=== PATIENT | male | born 1975 | race Hispanic/Latino ===

== ENCOUNTER → 2019-05-23 | Outpatient (CLI) | payer BC, SELFPAY ==
[2019-05-22 11:44] VITALS: BMI 26.9
[2019-05-23 22:29] LABS: Absolute Lymphocyte Count 1.22 X10^3/uL (0.83-4.51); Absolute Neutrophil Count 8.4 X10^3/uL (2.0-7.7); Basophil# 0.01 X10^3/uL; Basophil% 0.1 % (0-1); Eosinophil# 0.01 X10^3/uL; Eosinophils% 0.1 % (0-5); Hemoglobin 13.7 g/dL (13.0-16.5); Lymphocyte # 1.22 X10^3/ul (4.0); Lymphocyte % 11.8 % (19-41); Mean Corp Hgb Conc 31.9 g/dL (32-36); Mean Corpuscular Hgb 29.5 pg (27.0-32.0); Mean Corpuscular Volume 92.7 fL (80-94); Mean Platelet Vol. 10.9 fl (6.2-12.0); Monocyte# 0.61 X10^3/uL; Monocyte% 5.9 % (0-10); NRBC Flagged by Analyzer 0 % (0-5); Neutrophil # 8.43 X10^3/uL (2.7-7.7); Neutrophil % 81.8 % (47-70); Platelet Count 362 K/mm3 (150-450); RBC Distribution Width CV 12.9 % (11.6-14.6); RBC Distribution Width SD 43.7 fl (35.1-43.9); Red Blood Count 4.64 M/mm3 (4.6-6.2); White Blood Count 10.3 K/mm3 (4.4-11.0)
[2019-05-23 22:36] LABS: ALB/GLOB Ratio 0.8 RATIO (0.9-2.4); AST(SGOT) 23 U/L (15-37); Alanine Aminotransfer ALT/SGPT 41 U/L (16-61); Albumin, Serum 3.7 g/dL (3.2-5.0); Alkaline Phosphatase 98 U/L (45-117); Anion Gap 6 (5-15); BUN 11 mg/dL (7-18); BUN/Creat Ratio 11.1 RATIO (10-20); Calcium,Total 9.8 mg/dL (8.5-10.1); Chloride 106 mmol/L (98-107); Cholesterol 264 mg/dL (200); Creatinine, Serum 0.99 mg/dL (0.70-1.30); EST Glomerular Filtration Rate 86 mL/min (>60); Est Glom Filt Rate - Afr Amer 104 mL/min (>60); Globulin 4.6 g/dL (2.2-4.2); Glucose 87 mg/dL (74-106); High Density Lipoprotein 77 mg/dL; Potassium 4.6 mmol/L (3.5-5.1); Protein, Total 8.3 g/dL (6.4-8.2); Sodium Level 139 mmol/L (136-145); Triglycerides 106 mg/dL; Very Low Density Lipoprotein 21 mg/dL (5-40)
== END | disposition home or self-care (01) ==
PROVIDERS: Referring Provider Nurse Practitioner; Visit Provider Nurse Practitioner
DX: E78.5 Hyperlipidemia, unspecified (principal)
CPT/HCPCS: 80053; 80061; 85025

== ENCOUNTER → 2019-11-06 14:51 | Outpatient (CLI) | payer BC, SELFPAY ==
[2019-11-01 12:45] VITALS: BMI 25.7
--- NOTE | 2019-11-06 15:16 | PET_ITS ---
EXAMINATION: FDG PET-CT INDICATIONS: A 44-year-old male with a reported history of pulmonary nodularity presenting for restaging examination. COMPARISON EXAMINATION: Previous CT of the chest report dated 11/02/19. INDEX LESION SIZE SUV INTERPRETATION Right lower posteromedial lung-right lower lobe 26.9 mm, frame 198 6.8 Fulfills quantitative criteria for viable neoplasm, histopathologic analysis recommended. Mediastinal structures right thoracic perihilum 35.1 mm largest, frame 206 5.1 max Fulfills quantitative criteria for viable neoplasm. Additional left lung nodules left lower lobe-left upper lobe 14.8 mm largest, frame 182 1.9 max Quantitative criteria for viable neoplasm not fulfilled. Left anterior neck soft tissue with fatty hilus 1.8 max Low likelihood of viable neoplasm. NON-INDEX LESION SIZE SUV INTERPRETATION Chest wall-rib 2.1 max Quantitative criteria for viable neoplasm are not fulfilled, most consistent with trauma-fracture. TECHNIQUE: Following the intravenous administration of 14.8 mCi of F-18 deoxyglucose via the left antecubital fossa, multiplanar image acquisitions of the head, neck, chest, abdomen and pelvis to level of mid-thigh, lower extremities obtained at one hour post radiopharmaceutical administration contemporaneously interpreted with the current CT of the head, neck, chest, abdomen and pelvis to level of mid-thigh, lower extremities dated 11/06/19 via coregistration and previous renal cell ultrasound report dated 11/02/19 reveal: SERUM GLUCOSE LEVEL: 83 mg/dl. HEIGHT: 68 inches. WEIGHT: 165 lbs. FINDINGS: 1. Focal increased radiopharmaceutical concentration is demonstrated in the right lower posteromedial lung-right lower lung-infrahilar region. The calculated maximum standard uptake value is 6.8. The maximum axial diameter of the corresponding parenchymal density on review of CT of the chest dated 11/06/19 is 26.9 mm (AP). 2. An additional nodular focus of increased FDG uptake is noted in the left lower posterolateral lung-left lower lobe and left lower anteromedial lung-left upper lobe generating a calculated maximum standard uptake value of 1.9. The maximum axial diameter of the noncalcified rounded density on review of CT of the chest dated 11/06/19 is 14.8 mm (transverse). 3. Multifocal increased labeled glucose metabolism is noted in the pre-subcarinal mediastinum and right thoracic perihilum. The calculated maximum standard uptake value is 5.1. The maximum axial diameter of the largest individual metabolic, morphologic abnormality on review of CT of the chest dated 11/06/19 is 35.1 mm (AP). 4. Several foci of increased labeled tracer distribution are noted in the left anterior neck involving level registering a calculated maximum standard uptake value of 1.8. The corresponding soft tissue densities demonstrate fatty hilus consistent with a low likelihood of viable neoplasia. 5. Facilitated glucose concentration is demonstrated in the left lower posterior, posterolateral chest wall associated with rib. The calculated maximum standard uptake value is 2.1. Quantitative criteria for viable osseous neoplasm are not fulfilled. 6. Normal physiologic distribution of the radiopharmaceutical is apparent in the hepatic (2.5) and splenic parenchyma, both renal units, bladder and visualized intestinal tract. The visualized portion of the cerebral cortex demonstrate symmetric and preserved glucose metabolism. Diffuse intestinal tract activity is noted throughout all four quadrants of the abdominal-pelvic retroperitoneum and mesentery consistent with normal physiologic distribution of the radiopharmaceutical. Pertinent CT findings are as follows. CHEST: The right hemithorax pleural effusion demonstrates no evidence of quantitative significant increased tracer distribution. The visualized small pericardial effusion is ametabolic. There is atherosclerotic calcification defined in the thoracic aorta without evidence of dilatation-aneurysm formation. Coronary arterial calcification is observed. ABDOMEN AND PELVIS: Atherosclerotic calcification is defined in the abdominal aorta without evidence of dilatation, aneurysm formation. Pelvic arterial calcification is observed. A fat containing left inguinal hernia is noted. Right and left inguinal soft tissue densities with fatty hilus are ametabolic. Colonic diverticulosis is encountered without evidence of diverticulitis. SKELETAL: Degenerative changes defined in the cervical, thoracic and lumbar spine demonstrate no evidence of glucose hypermetabolism. PET/PET/CT Tumor Base -Thigh Init IMPRESSION: 1. Increased glucose metabolism observed in the right lower posteromedial lung-infrahilar region fulfills quantitative criteria for viable neoplasm. Histopathologic analysis is recommended. (Leyda et al, Annals of Internal Medicine, 138:724, 2003). 2. Additional foci of increased fluorine labeled glucose uptake noted in the left lower and left upper lobes do not fulfill quantitative criteria for viable neoplasm. 3. The mediastinal right thoracic perihilar increase in radiopharmaceutical concentration fulfills quantitative criteria for malignant transformation with single point technique. 4. The left anterior neck hypermetabolic focus with expressed fatty hilus is consistent with a low likelihood of viable neoplastic involvement. 5. Enhanced tracer concentration observed in the left posterior and lateral chest wall associated with rib is most consistent with trauma-fracture. Electronic Signature Jesus Carpenter D.O. Accurate Quantification of SUVs for this report are calculated using the exclusive [employer]. Exclusive [place].S. Patent [employer] (U.S. Patent No. [id number]). Electronically Signed: Jesus Carpenter DO at 21:58 EDT Tel , Service support ,
== END ==
PROVIDERS: PCP Family Medicine; Referring Provider Internal Medicine Critical Care Medicine; Visit Provider Internal Medicine Critical Care Medicine
DX: R91.8 Other nonspecific abnormal finding of lung field (principal)
CPT/HCPCS: 78815; A9552

== ENCOUNTER 2019-11-14 11:04 | Day surgery (SDC) | payer BC, SELFPAY ==
[2019-11-01 12:45] VITALS: BMI 25.7
--- NOTE | 2019-11-12 10:31 | PCM.HP.STD ---
History of Present Illness Date of Admission: 11/14/19 Chief Complaint: PET Positive Lung Mass The patient is a 44-year-old male who presented to the pulmonary clinic for the evaluation of abnormal chest imaging. The patient is currently being followed by Dr. Scot Gaviria of the [facility] [place]. At the beginning of October, the patient tripped and fell in his recreational vehicle, striking his left chest wall. The patient experienced a great deal of pain and was subsequently referred to undergo dedicated chest imaging. CT chest without contrast completed on October 29, 2019 revealed evidence of bilateral emphysematous changes along with numerous subcentimeter pulmonary nodules bilaterally, some of which appeared spiculated. The largest of these nodules measured approximately 2.5 x 2.1 cm within the right lower lobe. Although this was a noncontrasted study, there did appear to be some possible right hilar adenopathy along with an enlarged lymph node in the subcarinal space. A right-sided pleural effusion was noted along with nondisplaced fractures of the seventh and eighth ribs. A follow up PET scan completed 11/05 revealed increased uptake in the right lower infrahilar region concerning for neoplasm. The patient does have an approximate 29-jeoo-kgvr smoking history, having quit completely 2 years ago. He also grew up in a smoking household as well. He is currently employed working for [employer] Following completion of his PET scan, the patient was referred to undergo EBUS with TBNA of the concerning lesions noted above. Past Medical History Medical History: Medical History (Last Reviewed 11/02/19 @ 08:46 by Gabrielle Nava) Abuse, drug or alcohol F19.10 IBS (irritable bowel syndrome) K58.9 Allergies No Known Allergies Allergy (Verified 11/07/19 12:25) Home Medications: Ambulatory Orders Medication Instructions Recorded cyclobenzaprine 5 mg tablet 5 mg PO TID PRN #45 tab 05/21/19 Surgical History: Surgical History (Last Reviewed 11/02/19 @ 08:46 by Gabrielle Nava) Back pain with history of spinal surgery M54.9 Smoking Status: Current every day smoker Tobacco Use: Chew Review of Systems Constitutional: Denies: Chills, Fever, Weight Change HEENT: Denies: Head Aches, Sinus Congestion, Sinus Drainage Cardiovascular: Denies: Chest Pain, Palpitations Respiratory: Denies: Cough, Shortness of breath at rest, Sputum production Gastrointestinal: Denies: Abdominal Pain, Nausea, Vomiting Genitourinary: Denies: Dysuria Musculoskeletal: Reports: - - +Chest wall pain Skin: Denies: Rash, Wounds Neurological: Denies: Numbness, Tingling, Focal weakness Psychiatric: Denies: Anxiety, Depression, Homicidal Ideations, Suicidal Ideations Hematologic/ Lymphatic: Denies: Easy Bruising, Easy Bleeding VTE Information - Inpt Only VTE Present on Admission: No VTE Mechan Device Prophylaxis: None VTE Pharm Prophylaxis ordered?: No Reason prophylaxis not ordered:: Treatment Not Indicated - Physical Exam Vitals/I&O's: Body Mass Index (BMI) 25.7 General: Alert, No apparent distress HEENT: Atraumatic, Normocephalic Oral: No Gingival or Mucosal Lesions/ Ulcerations Neck: Supple, No Nodes, Trachea Midline Lungs: Diminished Cardiovascular: Regular rate, Regular Rhythm Abdomen: Bowel Sounds Present, Soft, Non Tender Extremities: No clubbing, No cyanosis, No edema Skin: No breakdown Musculoskeletal: No Muscle Wasting Lymphatic: No Cervical, Supraclavicular, or Inguinal Adenopathy Neurological: Neuro grossly intact Psych/Mental Status: Normal Affect, Appropriate Assessment/Plan All Active Problems (Last Reviewed 11/02/19 @ 08:46 by Gabrielle Nava) Wellness examination (Acute) Hyperlipidemia (Acute) Radicular pain of shoulder (Acute) Shoulder region pain (Acute) Assessment & Plan 1. Pulmonary nodules/lesions, multiple R91.8 Plan The patient's recent noncontrasted chest CT did reveal evidence of bile pulmonary nodules, many of which were subcentimeter in size. Some of the nodules appeared spiculated. There does appear to be a 2.5 cm nodule, which is irregular in appearance present in the right lower lobe more medially. There is some emphysematous changes noted in the upper lobes bilaterally along with what appears to be in a large subcarinal lymph node and possible right hilar lymphadenopathy. Follow up PET scan was found to be positive and concerning for viable neoplasm. Therefore, I spoke with the patient regarding options for moving forward with additional diagnostic work up, including CT guided lung biopsy versus EBUS transbronchial needle aspiration. The patient wished to proceed with bronchoscopic work up. Risks and benefits of the proposed procedure were discussed and the patient agreed to proceed.
[2019-11-13 12:33] LABS: Hematocrit 46.1 % (40-54); Mean Corp Hgb Conc 32.5 g/dL (32-36); Mean Corpuscular Hgb 29.9 pg (27.0-32.0); Mean Platelet Vol. 10.2 fl (6.2-12.0); Platelet Count 366 K/mm3 (150-450); RBC Distribution Width CV 13.1 % (11.6-14.6); RBC Distribution Width SD 43.8 fl (35.1-43.9); Red Blood Count 5.01 M/mm3 (4.6-6.2); White Blood Count 7.9 K/mm3 (4.4-11.0)
[2019-11-13 12:41] LABS: Prothrombin Time (Protime)PT. 12.2 SECONDS (11.7-14.9)
[2019-11-14] VITALS (9 sets, daily range): BP systolic 101–115; BP diastolic 66–92; PULSE 93–108; RESP 16–22; TEMP 35.9–36.5; O2SAT 93–100; BMI 24.7
--- NOTE | 2019-11-14 | ASPIG_PTH ---
PATIENT: SILAS KIRK LOC: EN U#:[id number] AGE/SX: 44/M ROOM: RE11/14/[address]: Dr. Lobo Sahu DO : 1975 BED: DIS: 11/14/2019 SPEC #: [id number] RECD: 11/14/19 13:22 STATUS: JEFFREY REVeronica #: [id number] RITU: 11/14/19 00:[address]: Lobo Sahu DEPT: CYTOLOGY RECD BY: Stevan Nolan ENTERED: 11/14/19 13:23 SP TYPE: ASP OUT OTHR DR: Scot Gaviria DO Tissues: A - Lung, NOS B - Lung, NOS C - Lung, NOS D - Lung, NOS E - Lung, NOS F - Lung, NOS G - Lung, NOS H - Lung, NOS I - Lung, NOS J - Lung, NOS K - Lung, NOS Procedures: FNA Specimen Adequacy Special Stain Group II Surgery Specimen Level IV Cytology Other HEADER OPERATION: Endobronchial ultrasound PRE-OP DIAGNOSIS: Lung mass, mediastinal lymphadenopathy TISSUE SUBMITTED: A - EBUS, TBNA, aspiration #1, site 7, B - EBUS, TBNA, aspiration #2, site 7, C - EBUS, TBNA, aspiration #3, site 7, D - EBUS, TBNA, aspiration #4, site 11R, E - EBUS, TBNA, aspiration #5, site 10R, F - EBUS, TBNA, aspiration #5, site 10R, G - EBUS, TBNA, aspiration #7, site 10R, H - EBUS, TBNA, aspiration #8, site 10R, I - EBUS, TBNA, site 7, J - EBUS, TBNA, site 11R, K - EBUS, TBNA, site 10R DIAGNOSIS CYTOLOGY A. EBUS, TBNA, aspiration #1, site 7 (smears): Negative for malignant cells. Adequate for evaluation. Respiratory epithelial cells and lymphocytes noted. B. EBUS, TBNA, aspiration #2, site 7 (smears): Negative for malignant cells. A few lymphocytes are noted. C. EBUS, TBNA, aspiration #3, site 7 (smears): Positive for malignant cells, non-small cell carcinoma. D. EBUS, TBNA, aspiration #4, site 11R (smears): Atypical cells noted, suspicious for carcinoma. E. EBUS, TBNA, aspiration #5, site 10R (smears): Positive for malignant cells, non-small cell carcinoma. F. EBUS, TBNA, aspiration #5, site 10R (smears): Positive for malignant cells, non-small cell carcinoma. G. EBUS, TBNA, aspiration #7, site 10R (smears): Predominantly blood. Negative for malignant cells. H. EBUS, TBNA, aspiration #8, site 10R (smears): Positive for malignant cells, non-small cell carcinoma. I. EBUS, TBNA, site 7 fluid (cell block): A few malignant cells present with focal necrosis. See microscopic description. J. EBUS, TBNA, site 11R fluid (cell block): A few atypical cells noted. K. EBUS, TBNA, site 10R fluid (cell block): Malignant cells present derived non-small cell carcinoma, favor poorly differentiated adenocarcinoma, consistent with lung primary. See comment. SJ:shailesh 11/15/19 COMMENT The specimen is evaluated at the time of procedure by Dr. Magallon. Immediate Evaluation: A. EBUS, TBNA, aspiration #1, site 7: Negative for malignant cells. Adequate for evaluation. Respiratory epithelial cells and lymphocytes noted. B. EBUS, TBNA, aspiration #2, site 7: Negative for malignant cells. A few lymphocytes are noted. C. EBUS, TBNA, aspiration #3, site 7: Positive for malignant cells, non-small cell carcinoma. D. EBUS, TBNA, aspiration #4, site 11R: Atypical cells noted, suspicious for carcinoma. E. EBUS, TBNA, aspiration #5, site 10R: Positive for malignant cells, non-small cell carcinoma. F. EBUS, TBNA, aspiration #5, site 10R: Positive for malignant cells, non-small cell carcinoma. G. EBUS, TBNA, aspiration #7, site 10R: Predominantly blood. Negative for malignant cells. H. EBUS, TBNA, aspiration #8, site 10R: Positive for malignant cells, non-small cell carcinoma. K. Immunohistochemistry ([id number]) supports the above diagnosis. Molecular studies on the tumor will be performed and the results will be reported as an addendum. CYTOLOGY STUDY Slides are reviewed. I. The specimen also contains lymph node tissue and respiratory epithelial cells. CYTOLOGY GROSS A - Received labeled with the patient's name and and designated EBUS, TBNA, aspiration #1, site 7. The specimen consists of two smears. The smears are submitted for immediate cytologic evaluation (wet read). B - Received labeled with the patient's name and and designated EBUS, TBNA, aspiration #2, site 7. The specimen consists of two smears. The smears are submitted for immediate cytologic evaluation (wet read). C - Received labeled with the patient's name and and designated EBUS, TBNA, aspiration #3, site 7. The specimen consists of two smears. The smears are submitted for immediate cytologic evaluation (wet read). D - Received labeled with the patient's name and and designated EBUS, TBNA, aspiration #4, site 11R. The specimen consists of two smears. The smears are submitted for immediate cytologic evaluation (wet read). E - Received labeled with the patient's name and and designated EBUS, TBNA, aspiration #5, site 10R. The specimen consists of two smears. The smears are submitted for immediate cytologic evaluation (wet read). F - Received labeled with the patient's name and and designated EBUS, TBNA, aspiration #6, site 10R. The specimen consists of two smears. The smears are submitted for immediate cytologic evaluation (wet read). G - Received labeled with the patient's name and and designated EBUS, TBNA, aspiration #7, site 10R. The specimen consists of two smears. The smears are submitted for immediate cytologic evaluation (wet read). H - Received labeled with the patient's name and and designated EBUS, TBNA, aspiration #8, site 10R. The specimen consists of two smears. The smears are submitted for immediate cytologic evaluation (wet read). I - Received is 30 ml of red, cloudy fluid in RPMI labeled with the patient's name and and designated EBUS, TBNA, site 7, needle rinse, submitted for cell block. J - Received is 30 ml of red, cloudy fluid in RPMI labeled with the patient's name and and designated EBUS, TBNA, site 11R, submitted for cell block. K - Received is 30 ml of red, cloudy fluid in RPMI labeled with the patient's name and and designated EBUS, TBNA, site 10R, submitted for cell block. / SJ:rg 11/14/19 TC:0 CPT: 17671 x3, 57864 x3, 07407 x3, 20650 x5 ADDENDUM ADDENDUM ADDENDUM ADDENDUM ADDENDUM ADDENDUM 11/26/2019 10:02 ADDENDUM 11/26/2019 10:02 ADDENDUM 11/26/2019 10:02 ADDENDUM 11/28/2019 09:49 ADDENDUM 12/04/2019 09:13 ADDENDUM 11/26/2019 10:02 ADDENDUM 11/26/2019 10:02 PD-L1 (KEYTRUDA) IMMUNOHISTOCHEMICAL ANALYSIS FROM [facility] RESULTS: Tumor proportion score: 2% / Positive Please see complete report in e-chart or EMR for complete details ONKOSIGHT NGS EGFR SEQUENCING REPORT FROM [facility] RESULT SUMMARY: Normal PERTINENT NEGATIVE RESULTS: The following genes are negative for clinically relevant mutations. Mutational hotspots and surrounding exonic regions were interrogated for DNA level point mutations and indels (fusions not assayed). EGFR (exons 7, 15, 18, 19, 20, 21) inclusive of T790M. Please see complete report in e-chart or EMR FISH REPORT FROM [facility] INTERPRETATION: No evidence of ALK gene rearrangement or deletion RESULTS: 2p23/ ALK Normal nuclei Rearrangement 100% Please see complete report in e-chart or EMR for further details
--- NOTE | 2019-11-14 | IMM_PTH ---
PATIENT: SILAS KIRK LOC: EN U#:[id number] AGE/SX: 44/M ROOM: RE11/14/[address]: Dr. Lobo Sahu DO : 1975 BED: DIS: 11/14/2019 SPEC #: [id number] RECD: 11/15/19 11:11 STATUS: JEFFREY REQ #: [id number] RITU: 11/14/19 00:[address]: Lobo Sahu DEPT: IMMUNOHISTOCHEMISTRY RECD BY: Beth Gonzalez ENTERED: 11/15/19 11:13 SP TYPE: IMMUNO OTHR DR: Scot Gaviria DO Tissues: K - Lung, NOS Procedures: RCC (add) NAPSIN A (add) CK20 (add) CK5-6 (add) CK7 (add) CK8 (add) HEP PAR (add) TTF1 (add) Pankeratin (initial) P40 (add) PSAP (add) PHYSICIAN & [address] [address] SPECIMEN INFORMATION: Tissue Source: K - EBUS, TBNA, site 10 R Clinical Info: Lung mass, mediastinal lymphadenopathy Specimen Number: [id number] K CPT code: 33421, 30506 x10 METHODOLOGY: Deparaffinized sections of prefer/formalin-fixed tissue or PAP/DQ stained slides are incubated with monoclonal/polyclonal antibodies/oligonucleotide probes. Localization is made via biotin free immunoperoxidase method. Appropriate controls are performed and reacted as expected. Results on target cell population are indicated in the following table: RESULTS: ANTIBODY / CLONE RESULT AE1-3 (AE1/AE3/PCK26) positive CK7 (OV-TL12/30) positive CK8 (60pzpyA84) positive CK20 (KS20.8) negative TTF-1 (8G7G3/1) positive Napsin A (Rabbit Polyclonal) positive HepPar (OCh1E5) negative RCC (PN-15) negative PSAP (PASE/4LJ) negative CK5-6 (D5 & 1684) positive, weak P40 (BC28) negative These tests were developed and their performance characteristics determined by [facility]. They may not have been cleared or approved by the U.S. Food and Drug Administration. The FDA has determined that such clearance or approval is not necessary. The above immunohistochemical/dualISH markers are ordered and reviewed by the Pathologist. INTERPRETATION: K. EBUS, TBNA, site 10 R: Non-small cell carcinoma, favor poorly differentiated adenocarcinoma, consistent with lung primary. SJ:shailesh 11/16/19
[2019-11-14] MEDS: Lactated Ringers 1,000 ML 100 ML IV ×2 (11:38→12:45)
--- NOTE | 2019-11-14 13:11 | OP.BRONCH_ITS ---
Patient Name: Mandeep Rajput Procedure Date: 11/14/2019 9:02 AM Date of : 1975 Age: 44 Procedure: Bronchoscopy Indications: Mediastinal adenopathy, Lung mass suspicious for cancer Providers: Lobo Sahu MD Referring MD: Lobo Sahu MD Complications: No immediate complications Procedure: Pre-Anesthesia Assessment: - A History and Physical has been performed. Patient meds and allergies have been reviewed. The risks and benefits of the procedure and the sedation options and risks were discussed with the patient. All questions were answered and informed consent was obtained. Patient identification and proposed procedure were verified prior to the procedure by the physician and the nurse in the procedure room. Mental Status Examination: alert and oriented. Airway Examination: normal oropharyngeal airway. Respiratory Examination: clear to auscultation. CV Examination: normal. ASA Grade Assessment: II - A patient with mild systemic disease. After reviewing the risks and benefits, the patient was deemed in satisfactory condition to undergo the procedure. The anesthesia plan was to use general anesthesia. Immediately prior to administration of medications, the patient was re-assessed for adequacy to receive sedatives. The heart rate, respiratory rate, oxygen saturations, blood pressure, adequacy of pulmonary ventilation, and response to care were monitored throughout the procedure. The physical status of the patient was re-assessed after the procedure. After I obtained informed consent, the scope was passed under direct vision. Throughout the procedure, the patient's blood pressure, pulse, and oxygen saturations were monitored continuously.The procedure was accomplished without difficulty. The patient tolerated the procedure well. The ultrasound bronchoscope was introduced through the mouth, via laryngeal mask airway and advanced to the tracheobronchial tree. Findings: The nasopharynx/oropharynx appears normal. The larynx appears normal. The vocal cords appear normal. The subglottic space is normal. The trachea is of normal caliber. The mark is sharp. The tracheobronchial tree of the left lung was examined to at least the first subsegmental level. Bronchial mucosa and anatomy in the left lung are normal; there are no endobronchial lesions, and no secretions. Right Lung Abnormalities: Extrinsic compression was found in the bronchus intermedius. The lesion was successfully traversed. The scope was withdrawn and replaced with the EBUS bronchoscope to accomplish the ultrasound examination. Lymph Nodes: An endobronchial ultrasound endoscope was utilized to systematically examine the subcarinal mediastinum (level 7), right hilar region (level 10R) and right superior interlobar region (level 11Rs) in order to assist with fine needle aspiration. Lymph node sizing was performed via endobronchial ultrasound for suspected lung cancer. Sampling by transbronchial needle aspiration was also performed using an Olympus EBUS-TBNA 19 gauge needle in the subcarinal mediastinum (level 7), right hilar region (level 10R) and right superior interlobar region (level 11Rs) and sent for routine cytology. - The 7 (subcarinal) node was evaluated. Three samples with the needle were obtained. - The 11Rs (superior interlobar) node was evaluated. One sample with the needle was obtained. - The 10R (right hilar) node was evaluated. Four samples with the needle were obtained. Lymph Nodes: A PET scan was found to be hypermetabolic. Lymph Nodes: Rapid On-Site Evaluation (MARY): Preliminary cytology was suggestive of non small cell carcinoma (final results are pending) Impression: - Mediastinal adenopathy - Lung mass suspicious for cancer - The airway examination of the left lung was normal. - Extrinsic compression was found in the bronchus intermedius. - Endobronchial ultrasound was performed. - Lymph node sizing and sampling was performed. 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 Procedure Code(s): --- Professional --- 48572, Bronchoscopy, rigid or flexible, including fluoroscopic guidance, when performed; with endobronchial ultrasound (EBUS) guided transtracheal and/or transbronchial sampling (eg, aspiration[s]/biopsy[ies]), 3 or more mediastinal and/or hilar lymph node stations or structures Diagnosis Code(s): --- Professional --- R59.0, Localized enlarged lymph nodes R91.8, Other nonspecific abnormal finding of lung field J98.09, Other diseases of bronchus, not elsewhere classified J98.4, Other disorders of lung R09.89, Other specified symptoms and signs involving the circulatory and respiratory systems CPT copyright 2017 [employer]. All rights reserved. The codes documented in this report are preliminary and upon lighthouse keeper review may be revised to meet current compliance requirements. DO Lobo Presley MD 11/14/2019 1:11:02 PM This report has been signed electronically. Number of Addenda: 0 Note Initiated On: 11/14/2019 9:02 AM
[2019-11-14] MEDS: Acetaminophen 325 MG Tablet 650 MG PO (13:35)
[2019-11-14] MEDS: Lidocaine 2% Jelly 1 APPLIC Tube (13:52)
== END 2019-11-14 14:34 | disposition home or self-care (01) ==
LOC: EN 11:04 → AC 11:07
PROVIDERS: PCP Family Medicine; Referring Provider Internal Medicine Critical Care Medicine; Visit Provider Internal Medicine Critical Care Medicine
PROC: BB4BZZZ Ultrasonography of Pleura (ICD-10-PCS; principal; 2019-11-14 11:30)
DX: C34.90 Malignant neoplasm of unspecified part of unspecified bronchus or lung (principal); J98.4 Other disorders of lung; K58.9 Irritable bowel syndrome, unspecified; E78.5 Hyperlipidemia, unspecified; M54.10 Radiculopathy, site unspecified; F17.220 Nicotine dependence, chewing tobacco, uncomplicated
CPT/HCPCS: 31653; 36415; 85027; 85610; 87635; 88161; 88172; 88305; 88313; 88341; 88342; 94799; J7120; J2405; U0003

== ENCOUNTER → 2019-11-22 07:09 | Outpatient (CLI) | payer BC, SELFPAY ==
[2019-11-14 11:21] VITALS: BMI 24.7
--- NOTE | 2019-11-22 07:12 | MRI_ITS ---
STUDY: MRI BRAIN WITH AND WITHOUT CONTRAST REASON FOR EXAM: Male, 44 years old. new diagnosis nsclc, eval for mets TECHNIQUE: Standardized multiplanar fat and water weighted pulse sequences were obtained. IV 15cc dotarem was administered for the contrast portion of the examination. COMPARISON: None. FINDINGS: Normal size of the ventricles and extra-axial spaces for the patient''s age. Normal white matter tracts of the supratentorial brain. There is no evidence for recent intracranial ischemia or other cause of cytotoxic edema on diffusion weighted imaging (DWI). Normal T2* images of the brain without demonstrated susceptibility artifact. There is no demonstrated hemosiderin stain. Normal bilateral basal ganglia. Normal thalami. There is no extra-axial fluid accumulation. Normal flow voids within the major intracranial circulation suggesting patency by spin echo criteria. Normal venous enhancement. Multiple ring-enhancing lesions with surrounding vasogenic edema within the brain parenchyma consistent with metastatic disease. This includes an 8 mm lesion in the medial left temporal lobe, lesion in the right temporal lobe, lesion in the right occipital lobe, and an 8 mm lesion in the medial left occipital lobe. Normal sella turcica, pituitary gland, infundibular stalk, optic chiasm and hypothalamus. Normal tectal plate and pineal gland. Normal midbrain, altaf and medulla. Normal cerebellum. Normal basal cisterns. Normal bilateral temporal bones. Normal bilateral internal auditory canals. No demonstrated orbital abnormality, within the constraints of a routine brain study. Normal visualized paranasal sinuses. Normal calvarium and skull base. Normal visualized soft tissue structures. Normal visualized upper cervical spine. MRI/Brain W/WO Contrast IMPRESSION: Metastatic disease as described above. Electronically Signed: Jesus Doran MD at 9:09 EDT Tel , Service support ,
--- NOTE | 2019-11-22 07:15 | RAD_ITS ---
STUDY: X-RAY - ORBITS REASON FOR EXAM: Male, 44 years old. Hx of metal to eye, pre MRI TECHNIQUE: 2 view(s) of the orbits were obtained. COMPARISON: None. FINDINGS: Normal bilateral orbits without a metallic orbital foreign body. Normal visualized facial bones. Normal paranasal sinuses. The soft tissue structures are unremarkable. RAD/Orbits for Foreign Body IMPRESSION: No demonstrated metallic orbital foreign body. The patient is cleared for an MRI examination. Electronically Signed: Damien Shelton, at 7:54 EDT , Service support ,
== END ==
PROVIDERS: PCP Family Medicine; Referring Provider Internal Medicine Critical Care Medicine; Visit Provider Internal Medicine Critical Care Medicine
DX: Z01.818 Encounter for other preprocedural examination (principal); C34.90 Malignant neoplasm of unspecified part of unspecified bronchus or lung
CPT/HCPCS: 70030; 70553; A9575

== ENCOUNTER → 2019-12-10 06:49 | Outpatient (CLI) | payer BC, SELFPAY ==
[2019-11-01 12:45] VITALS: BMI 25.7
[2019-11-14 11:21] VITALS: BMI 24.7
--- NOTE | 2019-12-10 10:20 | PFTCOMP ---
COMPLETE PULMONARY FUNCTION TEST INTERPRETATION Brief HPI: Patient is a 44 year old male, currently under the care of Dr. Sahu, who presents to [facility] for complete pulmonary function tests secondary to diagnosis of nicotine dependence. Respiratory therapist reports good effort and reproducible results. Interpretation: Forced expiration spirometry shows a mild large airways obstructive ventilatory defect with an FEV1 of 79% predicted. There is no significant bronchodilator response by strict ATS criteria. Spirograms are of good quality and plateau slowly, indicating slowly emptying areas of the lungs. The respiratory flow volume loop shows decreased expiratory flow rates at all lung volumes consistent with airway obstruction. Lung volumes by body plethysmography show a normal total lung capacity at 6.42 L, 100% predicted. All other lung volumes are within normal limits. Diffusion capacity by carbon monoxide is normal at 88% predicted. The airway resistance is normal. No previous pulmonary function tests were available for review. Impression: Irreversible mild large airways obstructive ventilatory defect with preserved diffusion capacity, and a pattern consistent with chronic bronchitis.
== END ==
PROVIDERS: PCP Family Medicine; Referring Provider Internal Medicine Critical Care Medicine; Visit Provider Internal Medicine Critical Care Medicine
DX: F17.211 Nicotine dependence, cigarettes, in remission (principal)
CPT/HCPCS: 94060; 94726; 94729

== ENCOUNTER 2019-12-31 10:49 | Emergency (ER) | payer BC, SELFPAY ==
[2019-12-17 06:42] VITALS: BMI 26.3
[2019-12-31 10:50] VITALS: BP 146/106; PULSE 112; RESP 17; TEMP 36.3; O2SAT 99; BMI 26.2
--- NOTE | 2019-12-31 11:15 | EKG12_ITS ---
Test Reason : SOB Blood Pressure : / mmHG Vent. Rate : 107 BPM Atrial Rate : 107 BPM P-R Int : 132 ms QRS Dur : 088 ms QT Int : 346 ms P-R-T Axes : 062 -08 047 degrees QTc Int : 461 ms Sinus tachycardia Possible Left atrial enlargement Borderline ECG Confirmed by NATY SANDRA, HUSSAIN ([id number]), editor newspaper FLORENCIA SAUCEDO ([id number]) on 01/02/2020 10:10:37 AM Referred By: MR Confirmed By:HUSSAIN ALFONSO MD
--- NOTE | 2019-12-31 11:18 | NURSING ---
NO OLD EKGS
[2019-12-31 11:33] LABS: Absolute Lymphocyte Count 0.54 X10^3/uL (0.83-4.51); Absolute Neutrophil Count 7.5 X10^3/uL (2.0-7.7); Basophil# 0.03 X10^3/uL; Basophil% 0.3 % (0-1); Eosinophils% 1.1 % (0-5); Hematocrit 43.9 % (40-54); Lymphocyte # 0.54 X10^3/ul (4.0); Lymphocyte % 6.1 % (19-41); Mean Corp Hgb Conc 31.9 g/dL (32-36); Mean Corpuscular Hgb 30.2 pg (27.0-32.0); Mean Corpuscular Volume 94.8 fL (80-94); Mean Platelet Vol. 9.6 fl (6.2-12.0); Monocyte# 0.56 X10^3/uL; Monocyte% 6.3 % (0-10); NRBC Flagged by Analyzer 0 % (0-5); Neutrophil % 85.1 % (47-70); POSITIVE DIFFERENTIAL YES; Platelet Count 310 K/mm3 (150-450); RBC Distribution Width CV 14.7 % (11.6-14.6); RBC Distribution Width SD 50.7 fl (35.1-43.9); Red Blood Count 4.63 M/mm3 (4.6-6.2); White Blood Count 8.8 K/mm3 (4.4-11.0)
[2019-12-31 11:34] LABS: Differential Indicated SCAN CRITERIA MET
--- NOTE | 2019-12-31 11:40 | RAD_ITS ---
STUDY: X-RAY CHEST REASON FOR EXAM: Male, 44 years old. INCREASED SOB STARTING THIS WEEKEND. -- CURRENTLY BEING TREATED WITH RADIATION FOR LUNG CA -- SPo2 DROPPING TO 70s-80s WITH EXERTION AT HOME TECHNIQUE: Frontal and lateral views COMPARISON: None. FINDINGS: The lungs are clear and expanded. There is no demonstrated pleural abnormality. Normal size heart. Normal mediastinum. There is left hilar prominence. Normal visualized pulmonary arteries. Normal visualized aortic arch and descending thoracic aorta. Normal visualized thoracic spine. Normal visualized ribs, clavicles, and shoulders. There is no demonstrated abnormality of the visualized soft tissue structures of the upper abdomen. RAD/Chest PA and Lateral IMPRESSION: There is left hilar prominence. Electronically Signed: Yousif Pina DO at 12:30 EDT Tel [phone], Service support ,
[2019-12-31 11:51] LABS: AST(SGOT) 17 U/L (15-37); Alanine Aminotransfer ALT/SGPT 33 U/L (16-61); Alkaline Phosphatase 106 U/L (45-117); Anion Gap 6 (5-15); BUN 15 mg/dL (7-18); BUN/Creat Ratio 19.1 RATIO (10-20); Bilirubin, Direct 0.15 mg/dL (0.00-0.30); Calcium,Total 9.1 mg/dL (8.5-10.1); Chloride 103 mmol/L (98-107); Creatinine, Serum 0.78 mg/dL (0.70-1.30); EST Glomerular Filtration Rate 113 mL/min (>60); Est Glom Filt Rate - Afr Amer 137 mL/min (>60); Estimated Creatinine Clearance 114.49 ml/min; Globulin 4.4 g/dL (2.2-4.2); Glucose 102 mg/dL (74-106); Protein, Total 7.4 g/dL (6.4-8.2); Sodium Level 137 mmol/L (136-145)
[2019-12-31 11:55] LABS: D-Dimer Quantitative (DVT/PE) 1.13 FEU/ug/m (0.27-0.49)
[2019-12-31 12:02] VITALS: PULSE 109; RESP 20; O2SAT 95
--- NOTE | 2019-12-31 12:04 | CT_ITS ---
We are attempting to reach an attending provider to discuss findings. An addendum with communication details will be sent when the communication is complete. STUDY: CTA CHEST REASON FOR EXAM: Male, 44 years old. INCREASING SOB. Currently being treated with radiation for lung cancer RADIATION DOSAGE (If Supplied By Facility): CTDIvol = ( 12.15 ) mGy, DLP = ( 447.43 ) mGycm TECHNIQUE: The examination was performed with the intravenous administration of IV 75mL Isovue-370. Post-processing of the angiographic images was performed, with multiplanar reformation and 3D reconstruction. Individualized dose optimization techniques were used for this CT. COMPARISON: None. FINDINGS: Normal enhancement of the main pulmonary artery and right and left pulmonary arteries. There filling defects of the left upper and lower lobes peripheral pulmonary arteries. This is compatible with mild pulmonary embolism. Normal thoracic aorta and visualized great vessels. There is no demonstrated aortic dissection. Focal thickening of the pericardium or possibly pericardial effusion. Bilateral mediastinal and hilar adenopathy. There is a spiculated right perihilar 1.9 cm nodule. Normal visualized trachea and bronchi. The lungs are well expanded. Mild patchy groundglass densities and infiltrates, right more than left scattered pulmonary nodules are noted bilaterally. Largest nodule is noted in the left upper lobe anteromedially measuring 1.5 cm. Left lower lobe 1.8 cm cavitary lesion. Normal pleura. Normal chest wall structures. Old left rib fractures. Possible right adrenal 1.[address]/CTA Chest W/WO Contrast IMPRESSION: Mild left pulmonary embolism. No arterial dissection. Patchy mild groundglass densities and infiltrates, right more than left. Scattered pulmonary nodules as noted. Left lower lobe 1.8 cm cavitary lesion. Mediastinal and hilar adenopathy. Spiculated right perihilar nodular density. Possible right adrenal nodule. Focal pericardial thickening/effusion. Electronically Signed: Yousif Pina DO at 13:10 EDT Tel [phone], Service support ,
--- NOTE | 2019-12-31 12:39 | ED.DCSUM_ITS ---
History of Present Illness Chief Complaint: Shortness of Breath Informant: Patient Narrative: Patient presenting for evaluation secondary to shortness of breath. Patient has an underlying history of mild COPD, lung cancer, currently undergoing radiation therapy. Patient states that over the course of multiple weeks, worsening recently he has been dealing with shortness of breath. Shortness of breath is associated with coughing and feeling worse when he lays flat and when he exerts himself. He does report that he has some chest pain with deep inspiration. Cough is nonproductive. He denies any fevers. Denies any leg swelling. He has had some abdominal distention which he attributes to his prednisone use. No history of heart failure. Patient denies any history of liver failure. He is not on chemotherapy currently. No history of DVT or PE, no hemoptysis. Review of systems otherwise negative. Past Medical History - Allergies and Home Meds Allergies/Adverse Reactions: Allergies No Known Allergies Allergy (Verified 12/31/19 10:49) Primary Care Physician: Scot Gaviria DO [Primary Care Provider] - Prior records reviewed: Yes Past Medical History: - - COPD, lung cancer Lives: Spouse/ Significant Other Smoking Status: Current every day smoker Alcohol: None Drugs: None Review of Systems All systems negative except as indicated General: Denies: Chills, Fever, Sweats Eyes: Denies: Visual changes - bilaterally, Diplopia ENT: Denies: Rhinorrhea, Sore throat Cardiovascular: Reports: Chest pain Respiratory: Reports: Dyspnea, Cough, Dyspnea on exertion, Orthopnea Gastrointestinal: Denies: Abdominal pain, Nausea, Vomiting, Diarrhea, Melena, Hematochezia Genitourinary: Denies: Dysuria, Hematuria, Frequency Musculoskeletal: Denies: Back pain, Extremity Pain Skin: Denies: Rash, Wounds Neurological: Denies: Headache, Weakness, Numbness Physical Exam Vital Signs/Narrative: Vital Signs Temp Pulse Resp BP Pulse Ox 12/31/19 12:02 109 H 20 H 95 12/31/19 10:50 97.4 F L 112 H 17 146/106 H 99 Inital Vital Signs reviewed: Yes General: Well nourished, Well developed, No Acute Distress Head: Normocephalic, Atraumatic Eyes: Perrl, EOMI ENT: Moist mucous membranes, No rhinorrhea Neck: Supple, Nontender Cardiovascular: Regular rate, Regular rhythm, No murmurs Respiratory: No distress, Wheezing - Mild bilateral Abdomen: Soft, Nontender, Normal bowel sounds, - - Minimal distention no tympany Back: Nontender, Normal Inspection Extremities: Nontender, No edema Skin: Normal color, No rash Neurological: Alert, Oriented x3, Cranial nerves II-XII grossly intact, Normal Strength, Normal Sensation Psychological: Normal affect, Normal Mood Diagnostic/Tx/Re-eval Chest X-Ray - ED: Read by ED Physician, Read by Radiologist Clinical Impression(s) from Imaging Studies Chest X-Ray 12/31/19 11:40 IMPRESSION: There is left hilar prominence. Electronically Signed: Yousif Pina DO at 12:30 EDT Tel [phone], Service support , Chest CTA 12/31/19 12:04 IMPRESSION: Mild left pulmonary embolism. No arterial dissection. Patchy mild groundglass densities and infiltrates, right more than left. Scattered pulmonary nodules as noted. Left lower lobe 1.8 cm cavitary lesion. Mediastinal and hilar adenopathy. Spiculated right perihilar nodular density. Possible right adrenal nodule. Focal pericardial thickening/effusion. Electronically Signed: Yousif Pina DO at 13:10 EDT Tel [phone], Service support , ADDENDUM: 12/31/19 1321 IMPRESSION: Mild left pulmonary embolism. No arterial dissection. Patchy mild groundglass densities and infiltrates, right more than left. Scattered pulmonary nodules as noted. Left lower lobe 1.8 cm cavitary lesion. Mediastinal and hilar adenopathy. Spiculated right perihilar nodular density. Possible right adrenal nodule. Focal pericardial thickening/effusion. N.B. : The above information has been verbally conveyed by Yousif Pina DO to Dr. Abhijeet MD, on 12/31/2019 13:14:28 (ET). Electronically Signed: Yousif Pina DO at 13:10 EDT Tel [phone], Service support , Laboratory Data 12/31/19 12/31/19 12/31/19 11:23 11:23 11:23 WBC 8.8 RBC 4.63 Hgb 14.0 Hct 43.9 MCV 94.8 H MCH 30.2 MCHC 31.9 L RDW Std Deviation 50.7 H RDW Coeff of Irina 14.7 H Plt Count 310 MPV 9.6 Immature Gran % (Auto) 1.100 H Neut % (Auto) 85.1 H Lymph % (Auto) 6.1 L Mercer % (Auto) 6.3 Eos % (Auto) 1.1 Baso % (Auto) 0.3 Absolute Neuts (auto) 7.5 Absolute Lymphs (auto) 0.54 L Nucleated RBC % 0 D-Dimer Quant (PE/DVT) 1.13 H* Sodium 137 Potassium 4.0 Chloride 103 Carbon Dioxide 28.0 Anion Gap 6 BUN 15 Creatinine 0.78 Estim Creat Clear Calc 114.49 Est GFR (MDRD) Af Amer 137 Est GFR (MDRD) Non-Af 113 BUN/Creatinine Ratio 19.1 Glucose 102 Calcium 9.1 Total Bilirubin 0.50 Direct Bilirubin 0.15 AST 17 ALT 33 Alkaline Phosphatase 106 Troponin I < 0.015 Total Protein 7.4 Albumin 3.0 L Globulin 4.4 H - EKG Initial EKG Interpretation: - - Sinus tachycardia with a rate of [address] segments normal T waves normal CO and QTc intervals no evidence of acute ischemia or arrh ythmia - Medical Decision Making Patient presented secondary to chest pain and shortness of breath. Work-up was obtained. EKG demonstrated some mild tachycardia, no evidence of ischemia. CBC chemistry troponin unremarkable. Due to the patient's cancer history I did obtain a d-dimer was positive. Patient's chest x-ray by my personal review as well as radiology show some hilar prominence. I did get a BNP which was not significantly elevated. CT angiogram of the chest was obtained due to the positive d-dimer which does demonstrate evidence of pulmonary embolus. Patient was ambulated in the emergency department and did not have hypoxia. He does not have evidence of cardiac strain. I feel the patient is appropriate for outpatient management of this pulmonary embolism at this time. Patient's community health director, Dr. Sahu, was in the emergency department and agrees with this plan of care. Patient will be started on Xarelto. He was educated on signs and symptoms which to return, and on the risks and benefits of anticoagulation therapy which he did consent to. ED Disposition - Plan for ED Patient: Disposition: Home or Assisted Living Diagnosis: Pulmonary embolism, Lung cancer Instructions: Pulmonary Embolism Prescriptions: Rivaroxaban [Xarelto] 15 mg PO BID #42 tab Prescription Printed Referrals: Lobo Sahu DO [STAFF PHYSICIAN] - 5-7 Days
[2019-12-31 14:30] VITALS: BP 109/77; PULSE 68; RESP 15; O2SAT 95
[2020-01-01 16:50] LABS: BNP,B-Type NATRIURETIC PEPTIDE 17.7 pg/mL (0-100)
== END 2019-12-31 14:30 | disposition home or self-care (01) ==
PROVIDERS: Emergency Provider Emergency Medicine; PCP Family Medicine
DX: I26.99 Other pulmonary embolism without acute cor pulmonale (principal); C34.90 Malignant neoplasm of unspecified part of unspecified bronchus or lung; J44.9 Chronic obstructive pulmonary disease, unspecified; R00.0 Tachycardia, unspecified; F17.200 Nicotine dependence, unspecified, uncomplicated; Z79.899 Other long term (current) drug therapy
CPT/HCPCS: 71046; 71275; 80048; 80076; 83880; 84484; 85025; 85379; 93005; 99285; Q9967; A4216